=== PATIENT | female | born 1985 | race Two or more races ===

== ENCOUNTER 2025-04-02 07:20 | Emergency (ER) | payer OTHER ==
[~2025-04-02] VITALS: Ht 165.1 cm; Wt 54.9 kg
[2025-04-02] MEDS: IV NS 0.9% 1,000 ML BAG IV ONE ×3 (07:41→11:33)
[2025-04-02] MEDS ORDERED: PANTOPRAZOLE 40 MG VIAL ONE (07:44)
[2025-04-02] MEDS ORDERED: MAG HYDROX/AL HYDROX/SIMETH 30 ML UDC ONE (07:44)
[2025-04-02] MEDS ORDERED: LIDOCAINE VISCOUS 2% UD 15 ML UDC ONE (07:44)
[2025-04-02 07:48] LABS: PLATELET COUNT (AUTO) 350 K/uL (150-450); RED BLOOD CELL COUNT(AUTO) 4.11 MIL/uL (4.0-5.2); RED CELL DISTRIBUTION WIDTH 13.9 % (11.5-15.0); WHITE BLOOD COUNT (AUTO) 6.4 K/uL (4.3-11.0)
[2025-04-02 07:58] LABS: CALCIUM, SERUM 8.5 mg/dL (8.5-10.1); CREATININE 0.9 mg/dL (0.6-1.3); SODIUM SERUM 139 mmol/L (136-145); UREA NITROGEN, BLOOD 24 mg/dL (7-18)
[2025-04-02 08:04] LABS: ALCOHOL, BLOOD < 3 mg/dL (0-10); ASPARTATE AMINOTRANSFERASE 12 U/L (15-37); TOTAL PROTEIN, SERUM 6.0 g/dL (6.4-8.2)
[2025-04-02] MEDS: PANTOPRAZOLE 40 MG VIAL IV ONE (08:31)
[2025-04-02] MEDS: LIDOCAINE VISCOUS 2% UD 15 ML UDC MM ONE (08:31)
[2025-04-02] MEDS: MAG HYDROX/AL HYDROX/SIMETH 30 ML UDC PO ONE (08:32)
[2025-04-02 08:47] VITALS: TEMP 98.3
[2025-04-02 09:08] LABS: AMPHETAMINE, URINE NEGATIVE (NEGATIVE); BARBITURATE, URINE NEGATIVE (NEGATIVE); BENZODIAZEPINE, URINE NEGATIVE (NEGATIVE); CANNABINOID, URINE NEGATIVE (NEGATIVE); COCCAINE, URINE NEGATIVE (NEGATIVE); OPIATE, URINE NEGATIVE (NEGATIVE)
[2025-04-02 09:19] LABS: APPEARANCE,URINE CLEAR (CLEAR); BLOOD, URINE NEGATIVE Ery/uL (NEGATIVE); LEUKOCYTE ESTERASE ,URINE NEGATIVE (NEGATIVE); NITRITE, URINE NEGATIVE (NEGATIVE); PREGNANCY TEST URINE QUAL NEGATIVE (NEGATIVE); UGLUCOSE NEGATIVE (NEGATIVE)
[2025-04-02] MEDS ORDERED: DOXY100C2 PO (12:45)
[2025-04-02] MEDS ORDERED: CEFTRIAXONE 500 MG VIAL ONE (12:59)
[2025-04-02] MEDS ORDERED: LIDOCAINE /MPF 1% VIAL 5 ML VIAL ONE (13:00)
[2025-04-02] MEDS: CEFTRIAXONE 1 G VIAL IM ONE (13:07)
[2025-04-02 13:17] VITALS: BP 118/60; O2SAT 99
[2025-04-02 16:36] LABS: HIV-1/2 ANTIBODY NON REACTIVE (NONREACTIVE)
[2025-04-03 05:11] LABS: RAPID PLASMA REAGIN QUAL. Non Reactive (Non Reactive)
[2025-04-05 03:11] LABS: CHLAMYDIA TRACHOMATIS NAA Negative (Negative); NEISSERIA GONORRHOEAE NAA Negative (Negative)
== END 2025-04-02 13:31 ==
LOC: ER 07:32
DX: I95.1 Orthostatic hypotension (principal); E86.0 Dehydration; F32.A Depression, unspecified; N20.0 Calculus of kidney; N89.8 Other specified noninflammatory disorders of vagina; Z11.3 Encounter for screening for infections with a predominantly sexual mode of transmission; Z79.899 Other long term (current) drug therapy
CPT/HCPCS: 99285; 96372; 96374; 96361; 93005; 71045; 76705; 74176; 85025; 80048; 83690; 80076; 84703; 81003; 36415; 87210; 84484; 86850; 82962; 87806; 86592; 86593; 80320; 80307; 87491; 87591; J0696; J7030 ×2; J2470; J3490; G0480